=== PATIENT | male | born 1945 | race Caucasian/White ===

== ENCOUNTER → 2020-02-15 10:38 | Outpatient (CLI) | payer OTHER, SELFPAY ==
[2019-12-02 07:58] VITALS: BMI 29.5
--- NOTE | 2020-02-15 10:40 | CT_ITS ---
STUDY: CT CHEST WITHOUT CONTRAST REASON FOR EXAM: Male, 75 [address], TREE AND BUD PREVIOUSLY, DIFF BREATHING WITH EXERTION, HTN, DB RADIATION DOSAGE (If Supplied By Facility): CTDIvol = ( 18.32 ) mGy, DLP = ( 625.16 ) mGycm TECHNIQUE: Transaxial imaging was performed without the administration of intravenous contrast material. Multiplanar coronal and sagittal images were reformatted. Individualized dose optimization techniques were used for this CT. COMPARISON: None. FINDINGS: Small benign-appearing bilateral axillary lymph nodes. Increased reticular nodular pattern at the lung bases slightly more prominent on the left base with areas of both linear scarring. Mild degree of bronchiectasis suggestive of a interstitial fibrosis. Mild degree of the similar appearance is seen in the peripheral aspect of the lingular segment of the left upper lobe as well as the anterior aspect of the left upper lobe. There is no demonstrated pleural abnormality. There are calcifications of the coronary arteries. Minimal pericardial thickening more prominent anteriorly in the right side of the cardiac contour. There are multiple small lymph nodes within the mediastinum, which are normal in size and morphology most compatible with reactive lymph hyperplasia. Calcified left hilar nodes. Normal unenhanced pulmonary arteries. There is atherosclerotic calcification of the aortic arch with tortuosity and elongation of the aortic arch and descending thoracic aorta. There are degenerative changes of the thoracic spine. Calcified splenic granulomas. CT/Chest without Contrast IMPRESSION: Findings suggestive of a scarring at the lung bases with mild bronchiectasis as well as in the anterior lingular segment of the left upper lobe and both upper lobes. Minimal pericardial thickening Electronically Signed: Jeevan Elliott, at 12:29 EDT , Service support ,
--- NOTE | 2020-02-15 14:06 | PFTCOMP ---
COMPLETE PULMONARY FUNCTION TEST INTERPRETATION Brief HPI: Patient is a 75 year old male, currently under the care of myself, who presents to [facility] for complete pulmonary function tests secondary to diagnosis of COPD. Respiratory therapist reports good effort and reproducible results. Interpretation: Forced expiration spirometry shows a mild large airways obstructive ventilatory defect with an FEV1 of 91% predicted. There is a significant bronchodilator response in FVC and FEV1 by strict ATS criteria. Spirograms are of good quality and plateau slowly, indicating slowly emptying areas of the lungs. The respiratory flow volume loop shows decreased expiratory flow rates at all lung volumes consistent with airway obstruction. Lung volumes by body plethysmography show a decreased total lung capacity at 5.93 L, 83% predicted. All other lung volumes are reduced symmetrically. Diffusion capacity by carbon monoxide is normal at 95% predicted. The airway resistance is elevated. No previous pulmonary function tests were available for review. Impression: Partially reversible mild mixed ventilatory defect with preserved diffusion capacity
== END ==
PROVIDERS: Referring Provider Internal Medicine Critical Care Medicine; Visit Provider Internal Medicine Critical Care Medicine
DX: R06.02 Shortness of breath (principal)
CPT/HCPCS: 71250; 94060; 94726; 94729

== ENCOUNTER → 2020-02-18 10:42 | Outpatient (CLI) | payer OTHER, SELFPAY ==
[2019-12-02 07:58] VITALS: BMI 29.5
[2020-02-18 11:12] VITALS: PULSE 78; PULSE 81; PULSE 84; PULSE 89; PULSE 92; PULSE 94; PULSE 95; PULSE 96; O2SAT 93; O2SAT 94; O2SAT 96; O2SAT 97; O2SAT 98
--- NOTE | 2020-02-18 12:20 | WT_ITS ---
PSN 6 Minute Walk Test - 6 Minute Walk Test 6 Minute Walk Test: 6 Minute Walk Test PSN:6-Minute Walk Test Start: 02/18/20 11:09 Freq: Status: Active Protocol: [id number] Document 02/18/20 11:12 [facility] (Rec: 02/18/20 11:17 [facility] [id number]) 6 Minute Walk Test Date Performed 02/18/20 Time Performed 11:00 Height 6 ft 1 in Weight: 104.326 kg Weight in Pounds 230.[address]: Harlan Bird Assistive device used: None Pre-test Oxygen Delivery Method Room Air Pulse Ox (%) 97 Pulse Rate (60-100 beats/min) 78 Dyspnea Yesica Scale (0-10) 1 1st minute Oxygen Delivery Method Room Air Pulse Ox (%) 96 Pulse Rate (60-100 beats/min) 84 Dyspnea Yesica Scale (0-10) 1 Number of Rests Taken 0 2nd minute Oxygen Delivery Method Room Air Pulse Ox (%) 94 Pulse Rate (60-100 beats/min) 89 Dyspnea Yesica Scale (0-10) 2 Number of Rests Taken 0 3rd minute Oxygen Delivery Method Room Air Pulse Ox (%) 93 Pulse Rate (60-100 beats/min) 96 Dyspnea Yesica Scale (0-10) 2 Number of Rests Taken 0 4th minute Oxygen Delivery Method Room Air Pulse Ox (%) 94 Pulse Rate (60-100 beats/min) 92 Dyspnea Yesica Scale (0-10) 3 Number of Rests Taken 0 Reported Symptoms Increased Work of Breathing 5th minute Oxygen Delivery Method Room Air Pulse Ox (%) 94 Pulse Rate (60-100 beats/min) 94 Dyspnea Yesica Scale (0-10) 3 Number of Rests Taken 0 Reported Symptoms Increased Work of Breathing 6th minute Oxygen Delivery Method Room Air Pulse Ox (%) 96 Pulse Rate (60-100 beats/min) 95 Dyspnea Yesica Scale (0-10) 3 Number of Rests Taken 0 Reported Symptoms Increased Work of Breathing Post-test Oxygen Delivery Method Room Air Pulse Ox (%) 98 Pulse Rate (60-100 beats/min) 81 Dyspnea Yesica Scale (0-10) 1 Full Laps Walked 21 Partial Lap, Number of Tiles Walked 22 Total Distance Walked (ft) 1261 - Interpretation Interpretation: The patient was able to ambulate 1261 feet over the course of 6 minutes on room air with no assistive devices or breaks. The patient did experience significant desaturation from a baseline of 97% to as low as 93% during ambulation. These findings are suggestive of a possible respiratory limitation exercise tolerance. - Recommendations Recommendations: No supplemental oxygen is indicated at this time.
== END ==
PROVIDERS: Referring Provider Internal Medicine Critical Care Medicine; Visit Provider Internal Medicine Critical Care Medicine
DX: R06.02 Shortness of breath (principal)
CPT/HCPCS: 94618

== ENCOUNTER → 2020-04-04 10:08 | Outpatient (CLI) | payer OTHER, SELFPAY ==
[2020-04-04 05:44] VITALS: BMI 31.5
== END ==
PROVIDERS: Referring Provider Internal Medicine Critical Care Medicine; Visit Provider Internal Medicine Critical Care Medicine
DX: J47.9 Bronchiectasis, uncomplicated (principal)
CPT/HCPCS: 94667